=== PATIENT | male | born 1995 | race Caucasian/White ===

== ENCOUNTER 2022-12-09 17:18 | Emergency (ER) | payer BC ==
[~2022-12-09] VITALS: Ht 170.2 cm; Wt 72.7 kg
[2022-12-09 18:34] LABS: BASO % 0.3 % (0.0-2.0); EOS # 0.1 K/mm3 (0.0-0.7); EOS % 0.9 % (0.0-4.0); GRAN # 5.1 K/mm3 (1.4-6.5); GRAN % 65.3 % (42.2-75.2); HEMATOCRIT 43.6 % (42.0-52.0); HEMOGLOBIN 15.1 g/dl (13.5-18.0); LYMPH % 25.4 % (20.0-51.0); MEAN CELL VOLUME 88 fl (80.0-100.0); MEAN CORPUSCULAR HEMOGLOBIN 31 pg (27-31); MEAN CORPUSCULAR HGB CONC 35 g/dl (33.0-37.0); MEAN PLATELET VOLUME 9.1 fl (7.4-10.4); MONO # 0.6 K/mm3 (0.1-0.6); MONO % 7.8 % (1.7-9.3); PLATELET COUNT 245 K/mm3 (130-400); RED BLOOD COUNT 4.94 M/mm3 (4.20-5.60); REDCELL DISTRIBUTION WIDTH-CV 12.1 % (11.5-14.5)
[2022-12-09 18:53] LABS: ALBUMIN 4.5 gm/dL (3.5-5.0); BILIRUBIN,TOTAL 0.6 mg/dL (0.2-1.2); CALCIUM 9.5 mg/dL (8.4-10.2); CREATININE, serum 1.04 mg/dL (0.72-1.25); POTASSIUM 3.8 mmol/L (3.5-4.5); TOTAL PROTEIN 7.3 gm/dL (6.2-8.1)
[2022-12-09 19:24] VITALS: BP 127/88; PULSE 72; TEMP 98.1
== END 2022-12-09 19:24 | disposition home or self-care (01) ==
LOC: COL.ER 17:18
PROVIDERS: Personal Emergency Response Attendant
DX: S90.112A Contusion of left great toe without damage to nail, initial encounter (principal); M79.642 Pain in left hand; M79.89 Other specified soft tissue disorders; X58.XXXA Exposure to other specified factors, initial encounter